=== PATIENT | male | born 1985 | race African-American/Black ===

== ENCOUNTER 2019-09-18 09:34 | Emergency (ER) | payer OTHER ==
[~2019-09-18] VITALS: Ht 172.7 cm; Wt 64.4 kg
== END 2019-09-18 12:41 | disposition home or self-care (01) ==
LOC: ER 09:34 → EDBD 09:38 → ER 09:38
DX: R53.81 Other malaise (principal); Z03.818 Encounter for observation for suspected exposure to other biological agents ruled out; R53.83 Other fatigue; R53.1 Weakness

== ENCOUNTER 2021-06-18 06:33 | Emergency (ER) | payer OTHER ==
[~2021-06-18] VITALS: Ht 172.7 cm; Wt 61.2 kg
[2021-06-18] MEDS ORDERED: CEPHALEXIN500 MG PO ×2 (07:57→08:02)
[2021-06-18] MEDS ORDERED: KETO10TA2 PO ×2 (07:57→08:02)
== END 2021-06-18 08:15 ==
LOC: ER 06:33
DX: H60.92 Unspecified otitis externa, left ear (principal); Z72.0 Tobacco use